=== PATIENT | female | born 1985 | race Caucasian/White ===

== ENCOUNTER 2024-12-06 01:28 | Emergency (ER) | payer SELFPAY ==
[2024-12-06] MEDS ORDERED: IBUPROFEN 400 MG TAB ONE (02:16)
--- NOTE | 2024-12-06 02:24 | ER ---
Nurse's Notes [facility] Name: Varsha Arellano Age: 39 yrs Sex: Female : 1985 Arrival Date: 12/06/2024 Time: 01:28 Bed 6 Private MD: Diagnosis: Acute posterior head injury , acute posterior scalp laceration Presentation: 12/06 01:37 Chief complaint: Patient states: FELL AND HIT THE BACK OF HEAD. LACERATION ON BACK OF ha1 HEAD. NO LOC. 01:37 Coronavirus screen: Client denies travel out of the [place] in the last 14 days. Ebola ha1 Screen: No symptoms or risks identified at this time. Mechanism of Injury: resulted from a fall. Initial Sepsis Screen: Does the patient meet any 2 criteria? No. Patient's initial sepsis screen is negative. Does the patient have a suspected source of infection? No. Patient's initial sepsis screen is negative. Risk Assessment: Do you want to hurt yourself or someone else? Patient reports no desire to harm self or others. 01:37 Method Of Arrival: Ambulatory ha1 01:37 Acuity: GIOVANNY 3 ha1 Triage Assessment: 01:48 General: Appears comfortable, Behavior is calm, cooperative. Pain: Complains of pain in ha1 scalp Pain currently is 7 out of 10 on a pain scale. Neuro: Level of Consciousness is awake, alert, obeys commands, Oriented to person, place, time, situation, Reports FALLING AFTER DRINKING SOME BEERS. Cardiovascular: Patient's skin is warm and dry. Respiratory: Airway is patent Trachea midline Respiratory effort is even, unlabored. Derm: Injury Description: Laceration sustained to occipital area is 2.6 to 7.5 cm long, not bleeding. Historical: - Allergies: 01:47 Iodine; ha1 - PMHx: 01:48 CERVICAL CANCER; ha1 - Immunization history:: Adult Immunizations not up to date, Last tetanus immunization: < 10 years ago. - Infectious Disease History:: Denies. - Social history:: Smoking status: Patient denies any tobacco usage or history of. Smoking status: Patient uses alcohol, admits to "couple of beers" a day. - Family history:: not pertinent. Screenin:12 [facility] ED Fall Risk Assessment (Adult) History of falling in the last 3 months, vc1 including since admission No falls in past 3 months (0 pts) Confusion or Disorientation No (0 pts) Intoxicated or Sedated Yes (3 pts) Impaired Gait No (0 pts) Mobility Assist Device Used No (0 pt) Altered Elimination No (0 pt) Score/Fall Risk Level 3 or more points = High Risk Oriented to surroundings, Maintained a safe environment, Educated pt \\T\\ family on fall prevention, incl call for assistance when getting out of bed. Abuse screen: Denies threats or abuse. Nutritional screening: No deficits noted. Tuberculosis screening: No symptoms or risk factors identified. Assessment: 02:01 Reassessment: Patient and/or family updated on plan of care and expected duration. Pain br2 level reassessed. Patient is alert, oriented x 3, equal unlabored respirations, skin warm/dry/pink. General: Appears uncomfortable, Behavior is cooperative, anxious. Pain: Complains of pain in scalp. Neuro: Starks Agitation-Sedation Scale (RASS): 0 - Alert and Calm Level of Consciousness is awake, alert, obeys commands, Oriented to person, place, time, situation. Cardiovascular: Denies. Respiratory: Airway is patent Respiratory effort is even, unlabored, Respiratory pattern is regular, symmetrical. GI: No signs and/or symptoms were reported involving the gastrointestinal system. : No signs and/or symptoms were reported regarding the genitourinary system. EENT: No signs and/or symptoms were reported regarding the EENT system. Derm: LACERATION Reports pain that is 8 out of 10 on a pain scale. 02:30 General: Smells of alcohol, pt stumbled in swaying while walking. Pt admits to drinking vc1 alcohol and drove to the ER. Pt instructed to rest in room until safe for her to leave. . 02:48 Reassessment: PT HAS BEEN TOLD THAT SHE NEEDS TO FIND A RIDE HOME DUE TO ALCOHOL SHE br2 HAS BEEN DRINKING. PT DETERMINE TO GO HOME. BROUGHT PT FOOD AND DRINKS AND ASKED HER TO REST FOR A WHILE. 02:51 Reassessment: PT WALKED OUT, [place] [employer] NOTIFIED. br2 03:10 Reassessment: [place] [employer] TALKING TO PATIENT. ha1 Vital Signs: 01:37 BP 139 / 99; Pulse 110; Resp 19 S; Temp 97.3(T); Pulse Ox 98% on R/A; Weight 54.88 kg; ha1 Height 5 ft. 5 in. ; 01:37 Body Mass Index 20.14 (54.88 kg, 165.1 cm) ha1 [place] Coma Score: 01:37 Eye Response: spontaneous(4). Motor Response: obeys commands(6). Verbal Response: ha1 oriented(5). Total: 15. 05:56 Eye Response: spontaneous(4). Motor Response: obeys commands(6). Verbal Response: sp4 oriented(5). Total: 15. 05:58 Eye Response: spontaneous(4). Motor Response: obeys commands(6). Verbal Response: sp4 oriented(5). Total: 15. ED Course: 01:30 Patient arrived in ED. jj6 01:47 Triage completed. ha1 01:49 Óscar Koch MD is Attending Physician. sp4 02:01 Blanca Degroot RN is Primary Nurse. br2 02:06 Wound care: located on scalp was cleaned with with NORMAL SALINE. br2 02:12 Arm band placed on right wrist. vc1 02:13 Assist provider with laceration repair on occipital area that was between 2.6 to 7.5 cm vc1 using sutures. Set up tray. Performed by Óscar Koch MD Patient tolerated well. Patient did not have IV access during this emergency room visit. 02:13 Patient has correct armband on for positive identification. Bed in low position. Call vc1 light in reach. Provided Education on: safety. Pulse ox on. NIBP on. 02:35 Police [place] [employer] called per Charge Nurse. rv1 Administered Medications: 02:21 Drug: Ibuprofen PO 800 mg PO once Route: PO; vc1 02:40 Follow up: Response: No adverse reaction ha1 02:21 Drug: Lidocaine Infiltration (1 %) 20 ml 20 ml Infiltration once; to bedside Volume: 20 vc1 ml; Route: Infiltration; 02:40 Follow up: Response: No adverse reaction ha1 Medication: 02:13 VIS not applicable for this client. vc1 Outcome: 02:23 Discharge ordered by . sp4 02:59 Patient left the ED. br2 Signatures: Charilne Rudolph jj6 Katiuska Staton RN RN vc1 Albina Wright RN RN ha1 Kacey Sargent rv1 Óscar Koch MD MD sp4 Blanca Degroot RN RN br2 Corrections: (The following items were deleted from the chart) 01:48 01:47 Allergies: No Known Allergies; ha1 ha1 01:48 01:47 PMHx: None; ha1 ha1
--- NOTE | 2024-12-06 02:24 | EDPHYS ---
Physician Documentation [facility] Name: Varsha Arellano Age: 39 yrs Sex: Female : 1985 Arrival Date: 12/06/2024 Time: 01:28 Bed 6 Private MD: ED Physician Óscar Koch HPI: 12/06 01:49 This 39 yrs old Female presents to ER via Ambulatory with complaints of Head sp4 Injury-Adult. 05:56 39-year-old female presents with acute head injury associated with posterior head sp4 laceration. Patient states she fell backwards.. Historical: - Allergies: 01:47 Iodine; ha1 - PMHx: 01:48 CERVICAL CANCER; ha1 - Immunization history:: Adult Immunizations not up to date, Last tetanus immunization: < 10 years ago. - Infectious Disease History:: Denies. - Social history:: Smoking status: Patient denies any tobacco usage or history of. Smoking status: Patient uses alcohol, admits to "couple of beers" a day. - Family history:: not pertinent. ROS: 05:56 Constitutional: Negative for fever, chills, and weight loss, positive for acute head sp4 injury, positive for posterior scalp laceration. Eyes: Negative for injury, pain, redness, and discharge, ENT: Negative for injury, pain, and discharge, Neck: Negative for injury, pain, and swelling, Cardiovascular: Negative for chest pain, palpitations, and edema, 05:56 All other systems are negative, Exam: 05:56 Constitutional: This is a well developed, well nourished patient who is awake, alert, sp4 and in no acute distress. Head/Face: Normocephalic, positive posterior head laceration towards occipital scalp horizontal orientation 4 cm long Eyes: Pupils equal round and reactive to light, extra-ocular motions intact. Lids and lashes normal. Conjunctiva and sclera are not injected. Cornea within normal limits. Periorbital areas with no swelling, redness, or edema. ENT: Nares patent. No nasal discharge, no septal abnormalities noted. Tympanic membranes are normal and external auditory canals are clear. Oropharynx with no redness, swelling, or masses, exudates, or evidence of obstruction, uvula midline. Mucous membranes moist. Neck: Trachea midline, no thyromegaly or masses palpated, and no cervical lymphadenopathy. Supple, full range of motion without nuchal rigidity, or vertebral point tenderness. Chest/axilla: Normal chest wall appearance and motion. Nontender with no deformity. No lesions are appreciated. Cardiovascular: Regular rate and rhythm with a normal S1 and S2. No gallops, murmurs, or rubs. Normal PMI, no JVD. No pulse deficits. Respiratory: Lungs have equal breath sounds bilaterally, clear to auscultation and percussion. No rales, rhonchi or wheezes noted. No increased work of breathing, no retractions or nasal flaring. Abdomen/GI: Soft, with normal bowel sounds. No distension or tympany. No guarding or rebound. No evidence of tenderness throughout. Back: No spinal tenderness. No costovertebral tenderness. Skin: Warm, dry with normal turgor. Normal color with no rashes, no lesions, and no evidence of cellulitis. MS/ Extremity: Pulses equal, no cyanosis. Neurovascular intact. Full, normal range of motion. Neuro: Awake and alert, GCS 15, oriented to person, place, time, and situation. Cranial nerves II-XII grossly intact. Motor strength 5/5 in all extremities. Sensory grossly intact. Psych: Awake, alert, with orientation to person, place and time. Behavior, mood, and affect are within normal limits Vital Signs: 01:37 BP 139 / 99; Pulse 110; Resp 19 S; Temp 97.3(T); Pulse Ox 98% on R/A; Weight 54.88 kg; ha1 Height 5 ft. 5 in. ; 01:37 Body Mass Index 20.14 (54.88 kg, 165.1 cm) ha1 Taz Coma Score: 01:37 Eye Response: spontaneous(4). Motor Response: obeys commands(6). Verbal Response: ha1 oriented(5). Total: 15. 05:56 Eye Response: spontaneous(4). Motor Response: obeys commands(6). Verbal Response: sp4 oriented(5). Total: 15. 05:58 Eye Response: spontaneous(4). Motor Response: obeys commands(6). Verbal Response: sp4 oriented(5). Total: 15. Laceration: 05:59 Wound Repair of 4cm ( 1.6in ) subcutaneous laceration to right parietal area. sp4 Irregularly shaped.. Minimal bleeding noted.. Moderate contamination.. Distal neuro/vascular/tendon intact. Anesthesia: Wound infiltrated with 10 mls of 1% lidocaine. Wound prep: Moderate cleansing by me, Copious irrigation. Skin closed with 5 3-0 Silk using interrupted sutures and sterile technique. Dressed with left to air . Patient tolerated well. MDM: 02:12 Medical Screening Exam initiated sp4 05:58 Differential diagnosis: Contusion of Hematoma on Laceration of Intracranial bleed- sp4 Concussion cerebral contusion. Data reviewed: vital signs, nurses notes, old medical records. 05:59 ED course: Patient denied loss of consciousness or vomiting. CT not necessary at this sp4 time. Patient's laceration was repaired. Patient stable for discharge home.. 12/06 02:21 Order name: Dressing - Wound; Complete Time: 02:21 sp4 12/06 02:21 Order name: Gloves, Sterile; Complete Time: 02:21 sp4 12/06 02:21 Order name: Setup Suture Tray; Complete Time: 02:22 sp4 Administered Medications: 02:21 Drug: Ibuprofen PO 800 mg PO once Route: PO; vc1 02:40 Follow up: Response: No adverse reaction ha1 02:21 Drug: Lidocaine Infiltration (1 %) 20 ml 20 ml Infiltration once; to bedside Volume: 20 vc1 ml; Route: Infiltration; 02:40 Follow up: Response: No adverse reaction ha1 Disposition Summary: 12/06/24 02:23 Discharge Ordered Notes: Return on 12/25/2024 for suture removal Location: Home sp4 Problem: new sp4 Symptoms: have improved sp4 Condition: Stable sp4 Diagnosis - Acute posterior head injury , acute posterior scalp laceration sp4 Followup: sp4 - With: Private Physician - When: 12/25/2024 - Reason: Wound Recheck Discharge Instructions: - Discharge Summary Sheet sp4 - Laceration Care, Adult, [id number] sp4 Forms: - Patient Portal Instructions sp4 Signatures: Katiuska Staton RN RN vc1 Albina Wright RN RN ha1 Óscar Koch MD MD sp4 Corrections: (The following items were deleted from the chart) 01:48 01:47 Allergies: No Known Allergies; ha1 ha1 01:48 01:47 PMHx: None; ha1 ha1
[2024-12-06 03:03] VITALS: BP 139/99; TEMP 97.3; O2SAT 98
== END 2024-12-06 02:59 | disposition home or self-care (01) ==
LOC: ER 01:28
DX: S01.01XA Laceration without foreign body of scalp, initial encounter (principal); W18.30XA Fall on same level, unspecified, initial encounter

== ENCOUNTER 2024-12-27 08:48 | Emergency (ER) | payer SELFPAY ==
--- OUTSIDE RECORDS SUMMARY | 2024-12-27 08:51 | XMS REPORT | Continuity of Care Document ---
Author Name Unknown Address [address] [place] [address] [address] [place], [place] [id number] [place] [address] [address] [facility] [address] [place] [address] Care Team Providers Care Network Pricing Consultant Name Role Phone José Shukla Attending Clinician Unavailable [email or web address]_S Attending Clinician Unavaila ble [email or web address]_S Admitting Clinician Unavaila ble Payers Payer Name Policy Type Policy Number Effective Date Expirati on Date Source Encounters Start Date/Time End Date/Time Encounter Type Admission Type Attending Clinicians Care Facility Care Department Encounter ID Source 2022-08-18 11:36:01 [facility] [id number] [facility] 2022-08-17 09:23:04 [facility] [id number] [facility] 2022-08-10 15:28:05 [facility] [id number] [facility] 2022-07-28 13:26:02 [facility] [id number] 2023-09-02 00:00:00 2023-09-02 00:00:00 Outpatient GC_GCBZW_Ka diyala_S PRIV PRIV [id number] [facility] 2023-06-29 00:00:00 2023-06-29 00:00:00 Outpatient GC_GCBZW_Ka diyala_S PRIV PRIV [id number] [facility] 2023-06-28 00:00:00 2023-06-28 00:00:00 Outpatient GC_GCBZW_Ka kurtis_[facility]ul [facility] [id number] [facility] Medical Results Test Description Test Time Test Comments Results Resul t Comments Source BREAST CYST ASPIRATION RIGHT 2019-08-02 13:27:54 - BREAST CYST ASPIRATION RIGHTULTRASOUND GUIDED ASPIRATION RIGHT BREAST: 08/02/2019CLINICAL: Right Cyst Aspiration. Comparison is made to exams dated 06/21/2019 ultrasound and 06/21/2019 mammogram - [facility]-. An aspiration was performed for the palpable 4 cm cyst located in the right breast at 9 o'clock. The skin was prepped in the usual manner. Local anesthetic was administered to the access site. A 23 gauge needle was percutaneously placed into the abnormality under ultrasound guidance. Once the needle was documented to be in the correct location, turbid yellow fluid was aspirated. The aspirated fluid was discarded. IMPRESSION: ASPIRATIONAspiration of the 4 cm cyst in the right breast was successful. A follow-up mammogram and an ultrasound in 6 months is recommended to demonstrate stability. Jacki Noland M.D. dm/:08/02/2019 13:27:54 Entry: - 08/05/2019 11:47:09Imaging Technologist: REJI HASSAN, [facility]-letter sent: Short Term Follow Up DIAG MAMM BILATERAL TOMÁS CAD DIGITAL 2019-06-21 16:08:34 - DIAG MAMM BILATERAL TOMÁS CAD DIGITALBILATERAL DIGITAL DIAGNOSTIC MAMMOGRAM 3D/2D WITH CAD: 06/21/2019CLINICAL: Palpable mass, right breast. Digital breast tomosynthesis was performed in addition to routine CC and MLO views. Current mammographic images were evaluated by either a [employer] M-Vu or a [employer] ImageChecker CAD (computer aided detection system). No prior exams were available for comparison. The tissue of both breasts is heterogeneously dense, which lowers the sensitivity of mammography. A palpable marker is placed at the site of clinical area of concern in the right breast at 9 o'clock, posterior depth, and an oval circumscribed low-density mass that measures 4 cm is identified. No suspicious mass, architectural distortion, malignant type calcification, or lymph node abnormality detected. INCOMPLETE: ADDITIONAL IMAGING EVALUATION NEEDEDOval circumscribed low-density benign-appearing mass in the right breast at the site of palpable area of concern. Targeted and bilateral survey ultrasound to follow.- BREAST ULTRASOUND BILATERALULTRASOUND OF BOTH BREASTS: 06/21/2019No prior exams were available for comparison. Color flow and real-time ultrasound of both breasts were performed. Valdez scale images of the real-time examination were reviewed. The breast tissue has heterogenous background echotexture. Targeted right breast ultrasound, at the site of clinical area of palpable concern at 9 o'clock, 5 cm from nipple, demonstrates a simple cyst that measures 4 cm correlating with the mammographic masses, benign. The rest of the bilateral survey ultrasound demonstrates other scattered simple cysts, benign. No suspicious sonographic abnormality. No axillary lymphadenopathy was seen.IMPRESSION: BENIGN There is no sonographic evidence of malignancy. A 4 cm simple cyst, benign. If the cyst is symptomatic, then cyst aspiration can be performed. Age-appropriate follow-up, recommend annual screening mammogram starting at age 40 per ACR guidelines. Clinical follow up is also recommended, and further management of palpable abnormalities should be based on clinical examination.Paul Raymundo M.D. ss/:06/21/2019 16:08:34 Entry: - 06/24/2019 07:22:28Imaging Technologist: Charline HASSAN, [facility]-FWletter sent: BIRADS 1-2 Combo FU Letter Mammogram BI-RADS: 0 Incomplete: Additional Imaging Evaluation Needed Ultrasound BI-RADS: 2 Benign BREAST ULTRASOUND BILATERAL 2019-06-21 16:08:34 - DIAG MAMM BILATERAL TOMÁS CAD DIGITALBILATERAL DIGITAL DIAGNOSTIC MAMMOGRAM 3D/2D WITH CAD: 06/21/2019CLINICAL: Palpable mass, right breast. Digital breast tomosynthesis was performed in addition to routine CC and MLO views. Current mammographic images were evaluated by either a [employer] M-Vu or a [employer] ImageChecker CAD (computer aided detection system). No prior exams were available for comparison. The tissue of both breasts is heterogeneously dense, which lowers the sensitivity of mammography. A palpable marker is placed at the site of clinical area of concern in the right breast at 9 o'clock, posterior depth, and an oval circumscribed low-density mass that measures 4 cm is identified. No suspicious mass, architectural distortion, malignant type calcification, or lymph node abnormality detected. INCOMPLETE: ADDITIONAL IMAGING EVALUATION NEEDEDOval circumscribed low-density benign-appearing mass in the right breast at the site of palpable area of concern. Targeted and bilateral survey ultrasound to follow.- BREAST ULTRASOUND BILATERALULTRASOUND OF BOTH BREASTS: 06/21/2019No prior exams were available for comparison. Color flow and real-time ultrasound of both breasts were performed. Valdez scale images of the real-time examination were reviewed. The breast tissue has heterogenous background echotexture. Targeted right breast ultrasound, at the site of clinical area of palpable concern at 9 o'clock, 5 cm from nipple, demonstrates a simple cyst that measures 4 cm correlating with the mammographic masses, benign. The rest of the bilateral survey ultrasound demonstrates other scattered simple cysts, benign. No suspicious sonographic abnormality. No axillary lymphadenopathy was seen.IMPRESSION: BENIGN There is no sonographic evidence of malignancy. A 4 cm simple cyst, benign. If the cyst is symptomatic, then cyst aspiration can be performed. Age-appropriate follow-up, recommend annual screening mammogram starting at age 40 per ACR guidelines. Clinical follow up is also recommended, and further management of palpable abnormalities should be based on clinical examination.Paul Rayumndo M.D. ss/:06/21/2019 16:08:34 Entry: - 06/24/2019 07:22:28Imaging Technologist: Charline HASSAN, [facility]-FWletter sent: BIRADS 1-2 Combo FU Letter Mammogram BI-RADS: 0 Incomplete: Additional Imaging Evaluation Needed Ultrasound BI-RADS: 2 Benign
--- NOTE | 2024-12-27 09:16 | ER ---
Nurse's Notes [facility] Name: Varsha Arellano Age: 39 yrs Sex: Female : 1985 Arrival Date: 12/27/2024 Time: 08:48 Bed 12 Private MD: Diagnosis: Encounter for removal of sutures Presentation: 12/27 08:57 Chief complaint: Patient states: Needs sutures removed from scalp. Placed here 22 days ll1 ago. No fever or pain. Coronavirus screen: Client denies travel out of the [place] in the last 14 days. At this time, the client does not indicate any symptoms associated with coronavirus-19. Ebola Screen: Patient denies travel to an Ebola-affected area in the 21 days before illness onset. Initial Sepsis Screen: Does the patient meet any 2 criteria? No. Patient's initial sepsis screen is negative. Does the patient have a suspected source of infection? No. Patient's initial sepsis screen is negative. Risk Assessment: Do you want to hurt yourself or someone else? Patient reports no desire to harm self or others. Onset of symptoms was December 06, 2024. 08:57 Method Of Arrival: Ambulatory ll1 08:57 Acuity: GIOVANNY 5 ll1 Historical: - Allergies: 08:57 Iodine; ll1 - PMHx: 08:57 cervical cancer; ll1 - Immunization history:: Adult Immunizations up to date. - Social history:: Smoking status: Patient denies any tobacco usage or history of. Vital Signs: 08:57 BP 128 / 87; Pulse 89; Resp 16; Temp 97.3; Pulse Ox 99% ; Weight 54.43 kg; Height 5 ft. ll1 5 in. ; Pain 0/10; 08:57 Body Mass Index 19.97 (54.43 kg, 165.1 cm) ll1 08:57 Pain Scale: Adult ll1 ED Course: 08:50 Patient arrived in ED. im 08:51 Lola Ackerman MD is Attending Physician. gb1 08:57 Arm band placed on Patient placed in an exam room, on a stretcher. ll1 08:59 Triage completed. ll1 09:18 Rosemary Rothman, RN is Primary Nurse. ph Administered Medications: No medications were administered Outcome: 09:16 Discharge ordered by . gb1 09:18 Patient left the ED. ll1 Signatures: Rosemary Rothman RN RN Maxx Bethea RN RN ll1 Meredith Stanley Gina, MD MD gb1
--- NOTE | 2024-12-27 09:17 | EDPHYS ---
Physician Documentation [facility] Name: Varsha Arellano Age: 39 yrs Sex: Female : 1985 Arrival Date: 12/27/2024 Time: 08:48 Bed 12 Private MD: ED Physician Lola Ackerman HPI: 12/27 09:16 This 39 yrs old Female presents to ER via Ambulatory with complaints of gb1 Suture Removal. 09:16 Patient is here for suture removal after 22 days 5 stitches were placed in her scalp by joe Pritchett. She is here for removal.. Historical: - Allergies: 08:57 Iodine; ll1 - PMHx: 08:57 cervical cancer; ll1 - Immunization history:: Adult Immunizations up to date. - Social history:: Smoking status: Patient denies any tobacco usage or history of. Exam: 09:16 Head/Face: [address], parietal area gb1 Vital Signs: 08:57 BP 128 / 87; Pulse 89; Resp 16; Temp 97.3; Pulse Ox 99% ; Weight 54.43 kg; Height 5 ft. ll1 5 in. ; Pain 0/10; 08:57 Body Mass Index 19.97 (54.43 kg, 165.1 cm) ll1 08:57 Pain Scale: Adult ll1 MDM: 08:52 Medical Screening Exam initiated gb1 09:16 ED course: #5 sutures removed without incident.. gb1 Administered Medications: No medications were administered Disposition Summary: 12/27/24 09:16 Discharge Ordered Notes: Location: Home gb1 Condition: Stable gb1 Diagnosis - Encounter for removal of sutures gb1 Followup: gb1 - With: Private Physician - When: - Reason: Recheck today's complaints Forms: - Medication Reconciliation Form gb1 - Antibiotic Education gb1 - Prescription Opioid Use gb1 - Patient Portal Instructions gb1 - Leadership Thank You Letter gb1 Signatures: Maxx Bethea RN RN [facility] Lola Ackerman MD MD gb1
[2024-12-27 12:09] VITALS: BP 128/87; TEMP 97.3; O2SAT 99
== END 2024-12-27 09:18 | disposition home or self-care (01) ==
LOC: ER 08:48
DX: Z48.02 Encounter for removal of sutures (principal)